=== PATIENT | male | born 1985 | race African-American/Black ===

== ENCOUNTER 2018-03-02 11:43 | Emergency (ER) | payer SELFPAY ==
[~2018-03-02] VITALS: Ht 177.8 cm; Wt 83.9 kg
== END 2018-03-02 13:22 | disposition home or self-care (01) ==
LOC: EDBD 11:43 → ER 11:43
DX: H92.01 Otalgia, right ear (principal); J02.9 Acute pharyngitis, unspecified; K08.89 Other specified disorders of teeth and supporting structures; K02.9 Dental caries, unspecified; K04.7 Periapical abscess without sinus
CPT/HCPCS: 99282

== ENCOUNTER 2018-05-25 09:10 | Emergency (ER) | payer SELFPAY ==
[~2018-05-25] VITALS: Ht 177.8 cm; Wt 83.9 kg
--- OUTSIDE RECORDS SUMMARY | 2018-05-25 09:13 | XMS REPORT | Clinical Summary ---
Author Author [facility] Organization [facility] Address Unknown Phone Unavailable Care Team Providers Care Field Service Manager Name Role Phone Asked, No Pcp PCP Unavailable Allergies No Known Allergies Current Medications Prescription Sig. Disp. Refills Start End Date Status Date famotidine (PEPCID) 20 MG Take 1 tablet (20 mg 60 tablet 0 05/08/20 06/07/20 tablet total) by mouth 2 (two) 17 17 times a day for 30 days. [id number] Take 1 capsule by mouth 12 capsule 0 05/08/20 06/08/20 ne (FIORINAL) 50-325-40 every 4 (four) hours as 17 17 mg per capsule needed for headaches for up to 12 doses. Active Problems Not on file Social History Tobacco Use Types Packs/Day Years Used Date Current Some Day Smoker Cigarettes Alcohol Use Drinks/Week oz/Week Comments Yes Sex Assigned at Date Recorded Not on file Last Filed Vital Signs Not on file Plan of Treatment Health Maintenance Due Date Last Done Comments INFLUENZA VACCINE 02/18/2018 Results Not on fileafter 05/24/2017
== END 2018-05-25 09:45 | disposition home or self-care (01) ==
LOC: ER 09:10
DX: K08.89 Other specified disorders of teeth and supporting structures (principal); K02.9 Dental caries, unspecified; F17.210 Nicotine dependence, cigarettes, uncomplicated
CPT/HCPCS: 99283